=== PATIENT | male | born 1980 | race Hispanic/Latino ===

== ENCOUNTER 2025-03-06 10:06 | Emergency (ER) | payer SELFPAY ==
[2025-03-06] MEDS ORDERED: Ondansetron PF 4 MG/2 ML Vial ONE (10:16)
[2025-03-06 10:55] LABS: ALT (SGPT) 23 U/L (Less than 45); AST (SGOT) 25 U/L (11-34); Albumin 4.3 g/dL (3.1-4.5); Alkaline Phosphatase 87 U/L (40-110); Anion Gap 20 mmol/L (10-20); BUN (Urea Nitrogen) 12 mg/dL (8.9-20.6); Bilirubin, Total 1.1 mg/dL (0.3-1.2); Calc. Creatinine Clearance 0 mL/min (70-130); Calcium 9.6 mg/dL (7.8-10.44); Carbon Dioxide 23 mmol/L (22-29); Chloride 104 mmol/L (98-107); Globulin 3.2 g/dL (2.4-3.5); Glucose 93 mg/dL (70-105); Lipase 24 U/L (8-78); Potassium 4.0 mmol/L (3.5-5.1); Sodium 143 mmol/L (136-145)
[2025-03-06 11:23] LABS: #Basophils 0.03 10x3/uL (0.0-0.2); #Eosinophils 0.07 10x3/uL (0.0-0.7); #Monocytes 0.79 10x3/uL (0.11-0.59); #Neutrophils 6.07 10x3/uL (1.40-6.50); %Basophils 0.3 % (0.0-1.0); %Eosinophils 0.8 % (0.0-10.0); %Lymphocytes 18.7 % (21.0-51.0); %Monocytes 9.2 % (0.0-10.0); %Neutrophils 70.8 % (42.0-75.0); Hematocrit 44.8 % (42.0-52.0); Hemoglobin 14.2 g/dL (14.0-18.0); Mean Corpuscular Hemoglobin 25.8 pg (27.0-31.0); Mean Corpuscular Volume 81.5 fL (78.0-98.0); Platelet Count 440 10x3/uL (130-400); Red Blood Cell (RBC) Count 5.50 mill/uL (4.70-6.10); White Blood Cell (WBC) Count 8.59 10x3/uL (4.8-10.8)
[2025-03-06 12:04] LABS: Bacteria/HPF None Seen HPF (None Seen); CAUTI Indications for Culture Pelvic or flank pain; Glucose, Urine (Dipstick) Normal (Negative); Leukocyte Negative Leu/uL (Negative); Protein, Urine (Dipstick) 50 mg/dL (Neg-Trace); RBC/HPF 0-3 HPF (0-3); Specific Gravity, Urine 1.033 (1.002-1.036); WBC/HPF 0-3 HPF (0-3)
[2025-03-06 12:06] LABS: Urine Culture Reflex No No
[2025-03-06] MEDS ORDERED: Iopamidol-370 76% 500 ML MDV (1 ML CHARGE) ONE (13:49)
== END 2025-03-06 13:05 | disposition home or self-care (01) ==
LOC: ERS 10:06
DX: N28.9 Disorder of kidney and ureter, unspecified (principal); R11.2 Nausea with vomiting, unspecified
CPT/HCPCS: 74177; 80053; 81001; 83690; 85025; 87081; 87428; 87430; 96361; 96374; J2405; Q9967